=== PATIENT | male | born 1965 | race Caucasian/White ===

== ENCOUNTER 2024-04-18 22:59 | Observation (INO) ==
[2024-04-18 23:59] LABS: High Sensitivity Troponin 3 Hr 7 pg/mL (<20)
[2024-04-19] MEDS: Heparin DRIP 25,000 UNITS BAG 25,000 UNITS/250 ML BAG IV SCH
[2024-04-19 00:19] LABS: ABS Basophils 0.1 10^3/uL (0.0-0.1); ABS Eosinophils 0.2 10^3/uL (0.0-0.5); ABS Lymphocytes 2.4 10^3/uL (1.0-4.8); ABS Monocytes 0.8 10^3/uL (0.0-1.1); ABS Neutrophils 7.9 10^3/uL (1.5-7.6); ABS Nucleated RBC 0.01 10^3/ul; Eosinophil % 1.6 %; Hematocrit 45.8 % (38-53); Hemoglobin 15.3 g/dL (13.2-16.3); Lymphocyte % 20.7 %; Mean Corpuscular Hemoglobin 28.2 pg (27-33); Mean Corpuscular Hgb Conc 33.3 g/dL (31-36); Mean Corpuscular Volume 84.6 fL (80-97); Mean Platelet Volume 8.7 fL (7.5-11.2); Nucleated Red Blood Cells % 0.1 %/100WBC (0.0-0.8); Platelet Count 251 10^3/uL (150-450); Red Blood Count 5.41 10^6/uL (4.06-5.63); Red Cell Distribution Width 14.7 % (12-17); White Blood Count 11.4 10^3/uL (3.6-10.2)
[2024-04-19 01:07] LABS: Blood Urea Nitrogen 16 mg/dL (6-24); Creatinine, Serum 1.03 mg/dL (0.67-1.17); eGFR CKD-EPI 83.2 (>60)
[2024-04-19] MEDS ORDERED: Albuterol HFA INHALER 8 gm MDI INH PRN (03:31)
[2024-04-19] MEDS ORDERED: Dextrose 50% Syringe 50 ml 25 GM/50 ML SYRINGE IV PUSH PRN (03:37)
[2024-04-19 04:24] LABS: Cholesterol 148 mg/dL; HDL Cholesterol 43.7 mg/dL; LDL Cholesterol 89 mg/dL; Triglycerides 79 mg/dL
[2024-04-19 06:25] LABS: ABS Basophils 0.1 10^3/uL (0.0-0.1); ABS Eosinophils 0.2 10^3/uL (0.0-0.5); ABS Lymphocytes 2.2 10^3/uL (1.0-4.8); ABS Monocytes 0.8 10^3/uL (0.0-1.1); ABS Neutrophils 4.9 10^3/uL (1.5-7.6); ABS Nucleated RBC 0.02 10^3/ul; Eosinophil % 2.2 %; Hematocrit 45.3 % (38-53); Hemoglobin 14.9 g/dL (13.2-16.3); Lymphocyte % 27.1 %; Mean Corpuscular Hemoglobin 28.1 pg (27-33); Mean Corpuscular Volume 85.2 fL (80-97); Mean Platelet Volume 9.1 fL (7.5-11.2); Nucleated Red Blood Cells % 0.2 %/100WBC (0.0-0.8); Platelet Count 240 10^3/uL (150-450); Red Blood Count 5.31 10^6/uL (4.06-5.63); Red Cell Distribution Width 14.1 % (12-17); White Blood Count 8.2 10^3/uL (3.6-10.2)
[2024-04-19] MEDS: Heparin 5000 UNITS/ML 1 mL VIAL IV SCH (06:51)
[2024-04-19 07:23] LABS: Potassium 4.1 mmol/L (3.5-5.0)
[2024-04-19 07:25] LABS: Calcium 8.7 mg/dL (8.6-10.3); Creatinine, Serum 0.97 mg/dL (0.67-1.17); Magnesium 2.2 mg/dL (1.9-2.7); eGFR CKD-EPI 89.4 (>60)
[2024-04-19] MEDS ORDERED: Sulfur Hexaflouride MICROSPHR 25 MG VIAL ONE (08:22)
[2024-04-19] MEDS ORDERED: Regadenoson 0.4 MG/5 ML SYRINGE ONE (08:23)
[2024-04-19] MEDS ORDERED: Aminophylline 25 MG/ML VIAL ONE (08:23)
[2024-04-19] MEDS: Sulfur Hexaflouride MICROSPHR 25 MG VIAL IV PRN (08:35)
[2024-04-19] MEDS ORDERED: Aspirin EC 325 mg TAB.EC ONE (10:28)
[2024-04-19] MEDS: CMCS: DAPAGLIFLOZIN 10 MG TAB (NF) PO SCH (10:31)
[2024-04-19] MEDS: Tiotropium Brom/Olodaterol MDI (ACUTE) INH SCH (12:15)
[2024-04-19] MEDS: Aspirin EC 81 mg TAB.EC (enteric coated) PO SCH (12:15)
[2024-04-19 12:22] VITALS: BP 113/75
[2024-04-19] MEDS ORDERED: Insulin GLARGINE 100 un/ml 10 ml VIAL SUBCUT SCH (21:00)
== END 2024-04-19 12:21 | disposition home or self-care (01) ==
LOC: EDHOLD 22:59 → ED 22:59 → SUATTDRO 04-19 01:11 → EDHOLD 04-19 12:20
PROVIDERS: ADMIT Student in an Organized Health Care Education/Training Program; ATTEND Internal Medicine